=== PATIENT | male | born 1970 | race Two or more races ===

== ENCOUNTER 2017-10-05 16:17 | Emergency (ER) | payer OTHER ==
[2017-10-05 16:27] VITALS: TEMP 98.1; BMI 41.3
--- NOTE | 2017-10-05 16:32 | PDOC ---
Rapid Medical Evaluation Time Seen by Provider: 10/05/17 16:21 Medical Evaluation: 10/05/17 16:22 I have performed a brief in-person evaluation of this patient. The patient presents with a chief complaint of: left hip pain. He walked in to ER on his own. Pt states his PCP wanted to send him in for pain meds and for ? MRI per Dr. Yordan Huang. I explained he will not have an MRI unless it is scheduled. He also tells me that he has a lap gastric sleeve scheduled for tomorrow morning with Dr Traore Pertinent physical exam findings: Pt ambulating to ED. c/o L side flank pain to the hip and buttock without numbness or tinging,no lose of b/b I have ordered the following:ua, pelvic xray The patient will proceed to the ED for further evaluation. Discharge Disposition - Diagnosis Back pain Qualifiers: Back pain location: low back pain Chronicity: unspecified Back pain laterality : left Sciatica presence: without sciatica Qualified Code(s): M54.5 - Low back pain - Referrals - Patient Instructions - Post Discharge Activity
[2017-10-05 17:22] LABS: URINE APPEARANCE CLEAR; URINE BILIRUBIN NEGATIVE (NEGATIVE); URINE BLOOD NEGATIVE (NEGATIVE); URINE COLOR YELLOW; URINE GLUCOSE (UA) NEGATIVE (NEGATIVE); URINE KETONE NEGATIVE (NEGATIVE); URINE LEUK ESTERASE NEGATIVE (NEGATIVE); URINE NITRITE NEGATIVE (NEGATIVE); URINE PROTEIN NEGATIVE (NEGATIVE)
[2017-10-05] MEDS ORDERED: ACETAMINOPHEN 500 MG TABLET (FP) PO ONE (17:37)
[2017-10-05] MEDS ORDERED: ACETAMINOPHEN 325 MG TABLET (FP) ONE (17:43)
--- NOTE | 2017-10-05 17:58 | PDOC ---
History of Present Illness - General Chief Complaint: Pain Stated Complaint: PCP SENT Time Seen by Provider: 10/05/17 16:21 History Source: Patient Exam Limitations: No Limitations - History of Present Illness Initial Comments: This is a 47 YOM with h/o DM, HTN, obesity who presents c/o left low back and hip pain for the past 2-3 weeks. He was seen by the [facility] ED about 2 weeks ago and had a CT of the abdomen/pelvis which he does not believe showed any abnormalities. DDX IBNLT sciatica, piriformis syndrome, disc bulging, vertebral fracture, diverticulitis/colitis, muscle strain/sprain, etc. Ordered is 1 GM PO Tylenol, RME ordered UA cx. Past History - Past Medical History Allergies/Adverse Reactions: Allergies Allergy/AdvReac Type Severity Reaction Status Date / Time No Known Allergies Allergy Verified 10/05/17 16:27 Home Medications: Ambulatory Orders Amlodipine Besylate 5 mg PO DAILY 10/05/17 Aspirin [ASA -] 81 mg PO DAILY 10/05/17 Enalapril Maleate [Vasotec -] 10 mg PO DAILY 10/05/17 Fenofibrate [Lipofen] 150 mg PO DAILY 10/05/17 Metformin HCl [Glucophage] 1,000 mg PO BID 10/05/17 Metoprolol Succinate [Toprol Xl -] 50 mg PO BID 10/05/17 Cardiac Disorders: Yes CVA: No COPD: No Dialysis: Yes HTN: Yes Hypercholesterolemia: Yes Kidney Stones: Yes - Suicide/Smoking/Psychosocial Hx Smoking History: Current every day smoker Number of Cigarettes Smoked Daily: 5 Information on smoking cessation initiated: No Hx Alcohol Use: Yes (SOCIAL) Drug/Substance Use Hx: No Substance Use Type: None *Physical Exam - Vital Signs Last Vital Signs Temp Pulse Resp BP Pulse Ox 98.1 F 84 20 119/83 99 10/05/17 16:18 10/05/17 16:18 10/05/17 16:18 10/05/17 16:18 10/05/17 16:18 ED Treatment Course - ADDITIONAL ORDERS Additional order review: Laboratory Results 10/05/17 17:00 Urine Color Yellow Urine Appearance Clear Urine pH 5.0 Ur Specific [place] 1.024 Urine Protein Negative Urine Glucose (UA) Negative Urine Ketones Negative Urine Blood Negative Urine Nitrite Negative Urine Bilirubin Negative Urine Urobilinogen 2.0 - Medications Given in the ED: ED Medications Discontinued Medications Generic Name Dose Route Start Last Admin Trade Name Leigh PRN Reason Stop Dose Admin Acetaminophen 1,000 mg 10/05/17 17:37 10/05/17 17:42 Tylenol - PO 10/05/17 17:38 1,000 mg ONCE ONE Administration *DC/Admit/Observation/Transfer Diagnosis at time of Disposition: Back pain Qualifiers: Back pain location: low back pain Chronicity: unspecified Back pain laterality : left Sciatica presence: without sciatica Qualified Code(s): M54.5 - Low back pain - Referrals - Patient Instructions - Post Discharge Activity
[2017-10-05 19:58] LABS: URINE LEUK ESTERASE Negative (NEGATIVE)
[2017-10-05] MEDS ORDERED: KETOROLAC TROMETHAMINE 60 MG/2 ML VIAL IM ONE (20:02)
--- NOTE | 2017-10-05 20:02 | PDOC ---
History of Present Illness - General Chief Complaint: Pain Stated Complaint: PCP SENT Time Seen by Provider: 10/05/17 16:21 History Source: Patient - History of Present Illness Initial Comments: 10/05/17 22:31 Patient is a 47 y.o. male who present with a 2 day h/o of constant abdominal pain that radiates to his groin. Patient denies any associated nausea, vomiting , constipation, diarrhea as well as fevers or chills. Patient notes the pain radiates to his left scrotum prompting his visit to the ED. Patient denies any recent trauma. Of note patient is scheduled to have gastric bypass surgery tomorrow (10/06) with Dr. Traore. Also of note @ triage patient c/o hip pain, however now states the pain is abdominal. NKDA PMD: Dr. Yordan Huang Past History - Past Medical History Allergies/Adverse Reactions: Allergies Allergy/AdvReac Type Severity Reaction Status Date / Time No Known Allergies Allergy Verified 10/05/17 16:27 Home Medications: Ambulatory Orders Amlodipine Besylate 5 mg PO DAILY 10/05/17 Aspirin [ASA -] 81 mg PO DAILY 10/05/17 Enalapril Maleate [Vasotec -] 10 mg PO DAILY 10/05/17 Fenofibrate [Lipofen] 150 mg PO DAILY 10/05/17 Metformin HCl [Glucophage] 1,000 mg PO BID 10/05/17 Metoprolol Succinate [Toprol Xl -] 50 mg PO BID 10/05/17 Cardiac Disorders: Yes CVA: No COPD: No Dialysis: Yes HTN: Yes Hypercholesterolemia: Yes Kidney Stones: Yes - Suicide/Smoking/Psychosocial Hx Smoking History: Current every day smoker Number of Cigarettes Smoked Daily: 5 Information on smoking cessation initiated: No Hx Alcohol Use: Yes (SOCIAL) Drug/Substance Use Hx: No Substance Use Type: None Review of Systems - Review of Systems Constitutional: No: Chills, Fever Respiratory: No: Shortness of Breath Cardiac (ROS): No: Chest Pain ABD/GI: Yes: Abdominal cramping. No: Constipated, Diarrhea, Nausea, Vomiting : No: Burning, Dysuria All Other Systems: Reviewed and Negative *Physical Exam - Vital Signs Last Vital Signs Temp Pulse Resp BP Pulse Ox 98.1 F 84 20 119/83 99 10/05/17 16:18 10/05/17 16:18 10/05/17 16:18 10/05/17 16:18 10/05/17 16:18 - Physical Exam General Appearance: Yes: Nourished, Appropriately Dressed, Obese Neck: positive: Trachea midline, Supple Respiratory/Chest: positive: Lungs Clear Cardiovascular: positive: S1, S2 Gastrointestinal/Abdominal: positive: Normal Bowel Sounds, Soft, Protuberent. negative: Pulsatile Mass, Distended, Guarding, Rebound, Tenderness Musculoskeletal: negative: CVA Tenderness (R), CVA Tenderness (L) Integumentary: positive: Normal Color, Dry, Warm Neurologic: positive: Fully Oriented, Alert ED Treatment Course - ADDITIONAL ORDERS Additional order review: Laboratory Results 10/05/17 17:00 Urine Color Yellow Urine Appearance Clear Urine pH 5.0 Ur Specific [place] 1.024 Urine Protein Negative Urine Glucose (UA) Negative Urine Ketones Negative Urine Blood Negative Urine Nitrite Negative Urine Bilirubin Negative Urine Urobilinogen 2.0 - Medications Given in the ED: ED Medications Discontinued Medications Generic Name Dose Route Start Last Admin Trade Name Leigh PRN Reason Stop Dose Admin Acetaminophen 1,000 mg 10/05/17 17:37 10/05/17 17:42 Tylenol - PO 10/05/17 17:38 1,000 mg ONCE ONE Administration Medical Decision Making - Medical Decision Making 10/05/17 22:37 Patient is a 47 y.o. male who c/o of abdominal pain that radiates to his scrotum. Imaging ordered at triage showed no acute intrabdominal process. On PE, no scrotal tenderness, erythema. Patient given pain control and discharged home. *DC/Admit/Observation/Transfer Diagnosis at time of Disposition: Abdominal pain - Discharge Dispostion Disposition: HOME Condition at time of disposition: Good Admit: No - Referrals Referrals: Yordan Huang MD [Primary Care Provider] - - Patient Instructions Printed Discharge Instructions: DI for Abdominal Pain-Adult Additional Instructions: Please return to the Emergency Department for any worsening or concerning symptoms. - Post Discharge Activity
--- NOTE | 2017-10-05 20:03 | PDOC ---
Attending Attestation - HPI HPI: 10/05/17 20:27 47 year old male with significant past medical history of HTN, HLD, and kidney stones, who presents to the emergency room complaining of 2 days of left lower back pain that radiates to the left groin and left testicle. <Liz Thompson - Last Filed: 10/05/17 20:27> - Resident Resident Name: Pamela Wallace - ED Attending Attestation I have performed the following: I have examined & evaluated the patient, The case was reviewed & discussed with the resident, I agree w/resident's findings & plan, Exceptions are as noted - Physicial Exam PE: 10/05/17 22:31 *Physical Exam General Appearance: Yes: Appropriately Dressed. No: Apparent Distress, Intoxicated HEENT: positive: EOMI, IRENE, Normal ENT Inspection, Normal Voice, TMs Normal, Pharynx Normal. negative: Pale Conjunctivae, Photophobia, Scleral Icterus (R), Scleral Icterus (L) Neck: positive: Trachea midline, Normal Thyroid, Supple. negative: Tender, Rigid, Carotid bruit, Stridor, Lymphadenopathy (R), Lymphadenopathy (L), Thyromegaly Respiratory/Chest: positive: Lungs Clear, Normal Breath Sounds. negative: Chest Tender, Respiratory Distress, Accessory Muscle Use, Labored Respiration, RES, Crackles, Rales, Rhonchi, Stridor, Wheezing, Dullness Cardiovascular: positive: Regular Rhythm, Regular Rate, S1, S2. negative: Edema , JVD, Murmur, Bradycardia, Tachycardia Vascular Pulses: Dorsalis-Pedis (R): 2+, Doralis-Pedis (L): 2+ Gastrointestinal/Abdominal: positive: Normal Bowel Sounds, Flat, Soft. negative : Tender, Organomegaly, Pulsatile Mass, Increased Bowel Sounds, Decreased BS, Distended, Guarding, Rebound, Hernia, Hepatomegaly, Spleenomegaly Lymphatic: negative: Adenopathy, Tenderness : uncircumsized, no lesions, no testicular masses or tenderness, no hernial defect Musculoskeletal: positive: Normal Inspection. negative: CVA Tenderness, Decreased Range of Motion Extremity: positive: Normal Capillary Refill, Normal Inspection, Normal Range of Motion, Pelvis Stable. negative: Tender, Pedal Edema, Swelling, Erythema Integumentary: positive: Normal Color, Dry, Warm. negative: Cyanotic, Erythema , Jaundice, Rash Neurologic: positive: survey researcher II-XII NML intact, Fully Oriented, Alert, Normal Mood/ Affect, Motor Strength 5/5. negative: EOM Palsy, Facial Droop, Sensory Deficit - Medical Decision Making 10/06/17 19:34 pt treated and released. Pt advised to go to his scheduled surgical appointment <Ge Ramirez - Last Filed: 10/06/17 19:35>
[2017-10-05] MEDS ORDERED: KETOROLAC TROMETHAMINE 60 MG/2 ML VIAL ONE (20:10)
[2017-10-05] MEDS ORDERED: morphine SULFATE 4 MG/ML VIAL IM ONE (22:31)
[2017-10-05] MEDS ORDERED: morphine SULFATE 4 MG/ML VIAL ONE (22:37)
[2017-10-05 22:46] VITALS: BP 165/92; PULSE 69
== END 2017-10-05 22:49 | disposition home or self-care (01) ==
LOC: JER 16:17
DX: M54.5 Low back pain (principal)
CPT/HCPCS: 72170-TC; 74176; 81003; 99283-25